=== PATIENT | male | born 1985 | race Caucasian/White ===

== ENCOUNTER 2023-07-28 12:05 | Emergency (ER) | payer OTHER | END 2023-07-28 12:35 | disposition home or self-care (01) | LOC: CSHERS 12:05 | DX: J06.9 Acute upper respiratory infection, unspecified (principal) | CPT/HCPCS: 99283 ==

== ENCOUNTER 2024-11-30 07:55 | Day surgery (SDC) | payer OTHER ==
[2024-11-28 10:37] VITALS: BMI 28.8
[2024-11-30] MEDS ORDERED: AFRIN NASAL MIST 15 ML BOT ONE ×3 (08:20→12:42)
[2024-11-30] MEDS ORDERED: Rocuronium Bromide 10 MG/ML (10ML VIAL) ONE (09:17)
[2024-11-30] MEDS ORDERED: PROPOFOL 20 ML ONE ×3 (09:17→10:06)
[2024-11-30] MEDS ORDERED: Lidocaine 1% PF 5 ML VIAL ONE (09:17)
[2024-11-30] MEDS ORDERED: Bacitracin 1 PK ONE (09:33)
[2024-11-30] MEDS ORDERED: Lidocaine 1% w/Epinephrine 1:200K 30 ML VIAL ONE (09:34)
[2024-11-30] MEDS ORDERED: Ondansetron PF 4 MG/2 ML Vial ONE (09:42)
[2024-11-30] MEDS ORDERED: SUGAMMADEX SODIUM 200 MG/2 ML VIAL ONE (09:48)
[2024-11-30] MEDS ORDERED: HYDROcodone/Acetaminophen 5/325 mg Tablet ONE (11:30)
[2024-11-30] MEDS ORDERED: Oxymetazoline HCl 0.05% (15 ML) ONE (12:40)
== END 2024-11-30 13:25 | disposition home or self-care (01) ==
LOC: CSHSDC 07:55
PROVIDERS: ATTEND Otolaryngology Plastic Surgery within the Head & Neck
PROC: 09BL8ZZ Excision of Nasal Turbinate, Via Natural or Artificial Opening Endoscopic (ICD-10-PCS; principal; 2024-11-30)
PROC: 09BT8ZZ Excision of Left Frontal Sinus, Via Natural or Artificial Opening Endoscopic (ICD-10-PCS; principal; 2024-11-30)
PROC: 09BS8ZZ Excision of Right Frontal Sinus, Via Natural or Artificial Opening Endoscopic (ICD-10-PCS; principal; 2024-11-30)
DX: J32.4 Chronic pansinusitis (principal); J34.2 Deviated nasal septum; J34.3 Hypertrophy of nasal turbinates; J34.89 Other specified disorders of nose and nasal sinuses; J33.9 Nasal polyp, unspecified; J35.01 Chronic tonsillitis
CPT/HCPCS: J1100; J2704; J3010